=== PATIENT | female | born 1985 | race Caucasian/White ===

== ENCOUNTER 2017-09-02 21:27 | Emergency (ER) | payer MEDICAID ==
[2017-09-02 23:37] LABS: BASOPHIL % 1.6 % (0-2); PLATELET COUNT 355 x10^3mcL (130-400)
[2017-09-02 23:38] LABS: RED CELL DISTRIBUTION WIDTH 15.4 % (11.5-14.5)
[2017-09-02 23:46] LABS: CALCIUM 8.6 mg/dL (8.5-10.1); CARBON DIOXIDE 26.5 mmol/L (21-32); CHLORIDE SERUM 101 mmol/L (98-107); CREATININE SERUM 0.6 mg/dL (0.6-1.0); GFR1 > 60 mL/min; GLUCOSE SERUM 163 mg/dL (74-106); POTASSIUM SERUM 3.5 mmol/L (3.5-5.1); SODIUM SERUM 135 mmol/L (136-145)
[2017-09-03 02:52] VITALS: BP 111/77
== END 2017-09-03 02:52 | disposition home or self-care (01) ==
LOC: ED 21:27
PROVIDERS: Emergency Medicine
DX: R07.89 Other chest pain (principal); F41.9 Anxiety disorder, unspecified
CPT/HCPCS: 36415; 83880; 85378; J1170; J1885; Q0092

== ENCOUNTER 2017-09-11 16:10 | Inpatient (IN) | payer MEDICAID ==
[~2017-09-11] VITALS: Ht 170.2 cm; Wt 110.2 kg
[2017-09-11] MEDS ORDERED: ATIVAN1 MG PO (19:39)
[2017-09-11 19:49] LABS: BASOPHIL % 1.2 % (0-2); PLATELET COUNT 366 x10^3mcL (130-400); RED CELL DISTRIBUTION WIDTH 15.6 % (11.5-14.5)
[2017-09-11 20:05] LABS: CALCIUM 8.8 mg/dL (8.5-10.1); CARBON DIOXIDE 27.5 mmol/L (21-32); CHLORIDE SERUM 101 mmol/L (98-107); CREATININE SERUM 0.7 mg/dL (0.6-1.0); GFR1 > 60 mL/min; GLUCOSE SERUM 117 mg/dL (74-106); POTASSIUM SERUM 3.7 mmol/L (3.5-5.1); SODIUM SERUM 136 mmol/L (136-145)
[2017-09-11 20:08] LABS: CK-MB < 0.5 ng/mL (0-3.6); CREATINE KINASE 21 U/L (26-192)
[2017-09-11 20:14] LABS: T3 TOTAL 1.06 ng/mL
[2017-09-11 20:18] LABS: ALKALINE PHOSPHATASE 73 U/L (46-116); ALT/SGPT 19 U/L (14-59); AST/SGOT 14 U/L (15-37); C REACTIVE PROTEIN 2.9 mg/dL (<=0.9); TOTAL PROTEIN, SERUM 7.7 g/dL (6.4-8.2)
[2017-09-11 20:35] LABS: AMPHETAMINE QUAL UR NONE DETECTED (NEG <=1000)
[2017-09-11 20:48] LABS: ERYTHROCYTE SED RATE 45 mm/hr (0-20)
[2017-09-11 21:39] VITALS: BP 108/60
[2017-09-11 21:51] LABS: CHOLESTEROL/HDL RATIO 4.6; MAGNESIUM 1.9 mg/dL (1.8-2.4); PHOSPHOROUS 3.6 mg/dL (2.5-4.9)
[2017-09-11 22:46] LABS: FREE T4 1.21 ng/dL (0.76-1.46); FREE THYROXINE INDEX 2.9 ug/dL (1.4-4.5); T4(THYROXINE) 9.2 ug/dL (4.7-13.3)
[2017-09-11 23:52] VITALS: BP 108/60
[2017-09-12 00:27] LABS: microscopic required? NO
[2017-09-12 00:40] LABS: urine erythrocyte NEGATIVE (NEGATIVE)
[2017-09-12 05:40] VITALS: BP 98/51
[2017-09-12 06:43] LABS: BASOPHIL % 0.4 % (0-2); PLATELET COUNT 329 x10^3mcL (130-400)
[2017-09-12 06:58] LABS: RED CELL DISTRIBUTION WIDTH 15.6 % (11.5-14.5)
[2017-09-12 08:23] LABS: CALCIUM 8.4 mg/dL (8.5-10.1); CARBON DIOXIDE 23.8 mmol/L (21-32); CHLORIDE SERUM 104 mmol/L (98-107); CREATININE SERUM 0.7 mg/dL (0.6-1.0); GFR1 > 60 mL/min; GLUCOSE SERUM 85 mg/dL (74-106); POTASSIUM SERUM 3.5 mmol/L (3.5-5.1); SODIUM SERUM 139 mmol/L (136-145)
[2017-09-12 09:35] VITALS: BP 95/54
[2017-09-12 12:50] VITALS: BP 104/60
[2017-09-12 18:33] VITALS: BP 104/59
[2017-09-12 20:52] VITALS: BP 104/65
[2017-09-13 05:15] VITALS: BP 106/65
[2017-09-13 06:59] LABS: BASOPHIL % 0.5 % (0-2); PLATELET COUNT 303 x10^3mcL (130-400)
[2017-09-13 07:01] LABS: RED CELL DISTRIBUTION WIDTH 15.5 % (11.5-14.5)
[2017-09-13 07:33] LABS: CALCIUM 8.1 mg/dL (8.5-10.1); CARBON DIOXIDE 24.7 mmol/L (21-32); CHLORIDE SERUM 106 mmol/L (98-107); CREATININE SERUM 0.6 mg/dL (0.6-1.0); GFR1 > 60 mL/min; GLUCOSE SERUM 99 mg/dL (74-106); PHOSPHOROUS 3.9 mg/dL (2.5-4.9); SODIUM SERUM 139 mmol/L (136-145)
[2017-09-13 08:52] VITALS: BP 109/65
[2017-09-13 13:16] VITALS: Ht 170.2 cm; Wt 110.2 kg
[2017-09-13 17:32] VITALS: BP 114/55
[2017-09-13 20:50] VITALS: BP 123/73
[2017-09-14 05:22] VITALS: BP 108/67
[2017-09-14 07:33] LABS: BASOPHIL % 0.2 % (0-2); PLATELET COUNT 330 x10^3mcL (130-400)
[2017-09-14 07:35] LABS: CALCIUM 8.2 mg/dL (8.5-10.1); CARBON DIOXIDE 25.4 mmol/L (21-32); CHLORIDE SERUM 104 mmol/L (98-107); CREATININE SERUM 0.6 mg/dL (0.6-1.0); GFR1 > 60 mL/min; GLUCOSE SERUM 144 mg/dL (74-106); POTASSIUM SERUM 3.5 mmol/L (3.5-5.1); SODIUM SERUM 137 mmol/L (136-145)
[2017-09-14 07:49] LABS: RED CELL DISTRIBUTION WIDTH 15.5 % (11.5-14.5)
[2017-09-14 08:45] VITALS: BP 113/61
[2017-09-14 12:35] VITALS: BP 104/54
[2017-09-14 17:19] VITALS: BP 106/60
[2017-09-14 21:14] VITALS: BP 111/61
[2017-09-15 04:49] VITALS: BP 100/50
[2017-09-15 06:34] LABS: BASOPHIL % 0.3 % (0-2); PLATELET COUNT 322 x10^3mcL (130-400)
[2017-09-15 06:45] LABS: RED CELL DISTRIBUTION WIDTH 16.1 % (11.5-14.5)
[2017-09-15 06:46] LABS: CALCIUM 8.3 mg/dL (8.5-10.1); CARBON DIOXIDE 26.7 mmol/L (21-32); CHLORIDE SERUM 105 mmol/L (98-107); CREATININE SERUM 0.6 mg/dL (0.6-1.0); GFR1 > 60 mL/min; GLUCOSE SERUM 85 mg/dL (74-106); POTASSIUM SERUM 3.7 mmol/L (3.5-5.1); SODIUM SERUM 140 mmol/L (136-145)
[2017-09-15 10:09] VITALS: BP 108/67
[2017-09-15 12:59] VITALS: BP 103/65; BP 106/77
[2017-09-15 17:07] VITALS: BP 127/60
[2017-09-15 21:20] VITALS: BP 114/63
[2017-09-16 04:52] VITALS: BP 114/63
[2017-09-16 05:12] VITALS: BP 124/76
[2017-09-16 07:18] LABS: BASOPHIL % 0.1 % (0-2); PLATELET COUNT 336 x10^3mcL (130-400)
[2017-09-16 07:23] LABS: RED CELL DISTRIBUTION WIDTH 15.6 % (11.5-14.5)
[2017-09-16 07:41] LABS: CARBON DIOXIDE 26.7 mmol/L (21-32); CHLORIDE SERUM 104 mmol/L (98-107); CREATININE SERUM 0.6 mg/dL (0.6-1.0); GFR1 > 60 mL/min; GLUCOSE SERUM 92 mg/dL (74-106); POTASSIUM SERUM 3.6 mmol/L (3.5-5.1); SODIUM SERUM 139 mmol/L (136-145)
[2017-09-16 09:48] VITALS: BP 105/69
[2017-09-16 13:26] VITALS: BP 98/54
[2017-09-16 17:01] VITALS: BP 111/69
[2017-09-16 19:30] VITALS: BP 108/58
[2017-09-17 06:15] VITALS: BP 96/57
[2017-09-17 06:59] LABS: BASOPHIL % 0.1 % (0-2); PLATELET COUNT 322 x10^3mcL (130-400)
[2017-09-17 07:01] LABS: RED CELL DISTRIBUTION WIDTH 15.7 % (11.5-14.5)
[2017-09-17 09:08] VITALS: BP 138/51
[2017-09-17 16:36] VITALS: BP 96/51
[2017-09-17 21:41] VITALS: BP 111/61
[2017-09-18 06:11] VITALS: BP 105/49
[2017-09-18 06:17] LABS: BASOPHIL % 0.2 % (0-2); PLATELET COUNT 323 x10^3mcL (130-400)
[2017-09-18 06:28] LABS: CALCIUM 8.3 mg/dL (8.5-10.1); CARBON DIOXIDE 26.1 mmol/L (21-32); CHLORIDE SERUM 104 mmol/L (98-107); CREATININE SERUM 0.7 mg/dL (0.6-1.0); GFR1 > 60 mL/min; GLUCOSE SERUM 104 mg/dL (74-106); POTASSIUM SERUM 3.6 mmol/L (3.5-5.1); SODIUM SERUM 140 mmol/L (136-145)
[2017-09-18 06:45] LABS: RED CELL DISTRIBUTION WIDTH 15.2 % (11.5-14.5)
[2017-09-18 09:30] VITALS: BP 97/48
[2017-09-18 10:23] VITALS: BP 100/53
[2017-09-18] MEDS ORDERED: LEV500 PO (15:08)
== END 2017-09-18 17:10 | disposition home or self-care (01) | DRG 139 ==
LOC: ED 16:10 → DU 19:27 → MU 09-16 17:05
PROVIDERS: Family Medicine; Specialist; Student in an Organized Health Care Education/Training Program
PROC: 0B9G8ZX Drainage of Left Upper Lung Lobe, Via Natural or Artificial Opening Endoscopic, Diagnostic (ICD-10-PCS; principal; 2017-09-14)
PROC: 0B9C8ZX Drainage of Right Upper Lung Lobe, Via Natural or Artificial Opening Endoscopic, Diagnostic (ICD-10-PCS; 2017-09-14)
DX: J18.9 Pneumonia, unspecified organism (principal); E44.0 Moderate protein-calorie malnutrition; F41.9 Anxiety disorder, unspecified; E11.65 Type 2 diabetes mellitus with hyperglycemia; M94.0 Chondrocostal junction syndrome [Tietze]; I34.0 Nonrheumatic mitral (valve) insufficiency; D72.829 Elevated white blood cell count, unspecified; E78.2 Mixed hyperlipidemia; F17.210 Nicotine dependence, cigarettes, uncomplicated; Z98.51 Tubal ligation status; Z98.891 History of uterine scar from previous surgery; Z68.38 Body mass index [BMI] 38.0-38.9, adult; E66.9 Obesity, unspecified
CPT/HCPCS: 36600; 82962; 83880; 84439; 86480; 87116; 87206; 94150; J0330; J0696; J1885; J2060; J2405; J2543; J2930; J3010; J7030; J7040; J7120; J7620; Q0092

== ENCOUNTER 2017-10-14 10:05 | Emergency (ER) | payer MEDICAID ==
[~2017-10-14] VITALS: Ht 170.2 cm; Wt 110.7 kg
[~2017-10-14 10:05] MED LIST: ATIVAN1 MG PO; LEV500 PO
[2017-10-14 10:20] VITALS: Ht 170.2 cm; Wt 110.7 kg
[2017-10-14 12:22] VITALS: BP 105/69
== END 2017-10-14 12:22 | disposition home or self-care (01) ==
LOC: ED 10:05
DX: R07.89 Other chest pain (principal); R91.1 Solitary pulmonary nodule; E11.9 Type 2 diabetes mellitus without complications
CPT/HCPCS: 82962

== ENCOUNTER 2017-11-18 21:45 | Inpatient (IN) | payer MEDICAID ==
[~2017-11-18] VITALS: Ht 167.6 cm; Wt 112.3 kg
[2017-11-18 22:03] VITALS: Ht 167.6 cm; Wt 112.3 kg
[2017-11-18 23:06] LABS: PLATELET COUNT 330 x10^3mcL (130-400)
[2017-11-18 23:11] LABS: RED CELL DISTRIBUTION WIDTH 16.6 % (11.5-14.5)
[2017-11-18 23:16] LABS: CALCIUM 8.6 mg/dL (8.5-10.1); CARBON DIOXIDE 29.8 mmol/L (21-32); CHLORIDE SERUM 102 mmol/L (98-107); CREATININE SERUM 0.7 mg/dL (0.6-1.0); GFR1 > 60 mL/min; GLUCOSE SERUM 151 mg/dL (74-106); POTASSIUM SERUM 3.8 mmol/L (3.5-5.1); SODIUM SERUM 136 mmol/L (136-145)
[2017-11-18 23:20] LABS: ALBUMIN 3.2 g/dL (3.4-5.0); ALKALINE PHOSPHATASE 83 U/L (46-116); ALT/SGPT 43 U/L (14-59); AST/SGOT 26 U/L (15-37); BILIRUBIN TOTAL 0.2 mg/dL (0.20-1.00); LIPASE 79 IU/L (73-393); TOTAL PROTEIN, SERUM 7.7 g/dL (6.4-8.2)
[2017-11-18] MEDS ORDERED: ACE AEROSOL CL1 EACH MC (23:43)
[2017-11-19] VITALS (7 sets, daily range): BP systolic 83–101; BP diastolic 36–47
[2017-11-19 02:22] LABS: CHOLESTEROL/HDL RATIO 3.8; MAGNESIUM 1.9 mg/dL (1.8-2.4); PHOSPHOROUS 3.1 mg/dL (2.5-4.9)
[2017-11-19 02:25] LABS: T3 TOTAL 1.32 ng/mL
[2017-11-19 02:45] LABS: FREE T4 1.18 ng/dL (0.76-1.46); FREE THYROXINE INDEX 3.4 ug/dL (1.4-4.5); T4(THYROXINE) 10.9 ug/dL (4.7-13.3)
[2017-11-19 06:14] LABS: BASOPHIL % 0.3 % (0-2); PLATELET COUNT 285 x10^3mcL (130-400)
[2017-11-19 06:35] LABS: CALCIUM 7.8 mg/dL (8.5-10.1); CARBON DIOXIDE 24.9 mmol/L (21-32); CHLORIDE SERUM 104 mmol/L (98-107); CREATININE SERUM 0.6 mg/dL (0.6-1.0); GFR1 > 60 mL/min; GLUCOSE SERUM 92 mg/dL (74-106); MAGNESIUM 1.8 mg/dL (1.8-2.4); POTASSIUM SERUM 3.7 mmol/L (3.5-5.1); SODIUM SERUM 137 mmol/L (136-145)
[2017-11-19 07:10] LABS: RED CELL DISTRIBUTION WIDTH 15.9 % (11.5-14.5)
[2017-11-20 06:18] LABS: BASOPHIL % 0.3 % (0-2); PLATELET COUNT 305 x10^3mcL (130-400)
[2017-11-20 06:32] VITALS: BP 98/47
[2017-11-20 06:45] LABS: CALCIUM 8.7 mg/dL (8.5-10.1); CHLORIDE SERUM 103 mmol/L (98-107); CREATININE SERUM 0.6 mg/dL (0.6-1.0); GFR1 > 60 mL/min; GLUCOSE SERUM 106 mg/dL (74-106); MAGNESIUM 2.1 mg/dL (1.8-2.4); PHOSPHOROUS 4.3 mg/dL (2.5-4.9); POTASSIUM SERUM 4.1 mmol/L (3.5-5.1); SODIUM SERUM 139 mmol/L (136-145)
[2017-11-20 07:33] LABS: RED CELL DISTRIBUTION WIDTH 16.5 % (11.5-14.5)
[2017-11-20 09:07] VITALS: BP 95/37
[2017-11-20 09:25] LABS: microscopic required? NO
[2017-11-20 09:58] LABS: UA SPECIFIC GRAVITY 1.015 (1.005-1.035); urine erythrocyte NEGATIVE (NEGATIVE)
[2017-11-20 10:29] LABS: AMPHETAMINE QUAL UR NONE DETECTED (NEG <=1000)
[2017-11-20 12:49] VITALS: BP 115/72
[2017-11-20 17:05] VITALS: BP 105/60
[2017-11-20 20:37] VITALS: BP 111/61
[2017-11-20 23:49] VITALS: BP 102/61
[2017-11-21 05:35] VITALS: BP 105/62
[2017-11-21 06:26] LABS: BASOPHIL % 0.2 % (0-2); PLATELET COUNT 321 x10^3mcL (130-400)
[2017-11-21 06:57] LABS: CALCIUM 8.6 mg/dL (8.5-10.1); CARBON DIOXIDE 25.5 mmol/L (21-32); CHLORIDE SERUM 104 mmol/L (98-107); CREATININE SERUM 0.6 mg/dL (0.6-1.0); GFR1 > 60 mL/min; GLUCOSE SERUM 124 mg/dL (74-106); MAGNESIUM 2.3 mg/dL (1.8-2.4); PHOSPHOROUS 4.2 mg/dL (2.5-4.9); POTASSIUM SERUM 3.7 mmol/L (3.5-5.1); SODIUM SERUM 138 mmol/L (136-145)
[2017-11-21 09:25] VITALS: BP 97/50
[2017-11-21] MEDS ORDERED: COL100 PO (10:13)
[2017-11-21] MEDS ORDERED: LAC PO (10:13)
[2017-11-21] MEDS ORDERED: METFORMIN HCL500 MG PO ×2 (10:15→14:22)
[2017-11-21 13:22] VITALS: BP 106/56
[2017-11-21 13:41] VITALS: BP 106/56
[2017-11-21] MEDS ORDERED: BD LACTINEX1.4 MG PO (14:22)
[2017-11-21] MEDS ORDERED: KEFLEX500 M1 PO (14:22)
== END 2017-11-21 14:58 | disposition home or self-care (01) | DRG 710 ==
LOC: ED 21:45 → DU 23:28 → MU 11-21 10:35
PROVIDERS: Emergency Medicine; Family Medicine
PROC: 0DTJ4ZZ Resection of Appendix, Percutaneous Endoscopic Approach (ICD-10-PCS; principal; 2017-11-21)
DX: A41.9 Sepsis, unspecified organism (principal); E11.65 Type 2 diabetes mellitus with hyperglycemia; I10 Essential (primary) hypertension; E44.1 Mild protein-calorie malnutrition; K35.80 Unspecified acute appendicitis; K52.9 Noninfective gastroenteritis and colitis, unspecified; E66.9 Obesity, unspecified; Z68.35 Body mass index [BMI] 35.0-35.9, adult; G43.909 Migraine, unspecified, not intractable, without status migrainosus; F41.9 Anxiety disorder, unspecified; Z98.51 Tubal ligation status; Z83.3 Family history of diabetes mellitus; Z82.49 Family history of ischemic heart disease and other diseases of the circulatory system; F17.210 Nicotine dependence, cigarettes, uncomplicated; J45.909 Unspecified asthma, uncomplicated; E78.5 Hyperlipidemia, unspecified; N83.8 Other noninflammatory disorders of ovary, fallopian tube and broad ligament
CPT/HCPCS: 82962; 83880; 84439; 97110-GP; 97116-GP; 97535-GP; J0330; J0696; J1170; J1644; J1885; J2250; J2270; J2405; J2543; J2704; J2710; J3010; J3490; J7030; J7620; Q0092

== ENCOUNTER 2018-02-27 17:03 | Emergency (ER) | payer MEDICAID ==
[~2018-02-27] VITALS: Ht 167.6 cm; Wt 110.2 kg
[~2018-02-27 17:03] MED LIST changes: +ACE AEROSOL CL1 EACH MC; +BD LACTINEX1.4 MG PO; +COL100 PO; +KEFLEX500 M1 PO; +LAC PO; +METFORMIN HCL500 MG PO
[2018-02-27 17:55] VITALS: Ht 167.6 cm; Wt 110.2 kg
[2018-02-27 21:30] VITALS: BP 107/74
[2018-02-27 21:50] LABS: microscopic required? NO
[2018-02-27 22:19] LABS: urine erythrocyte NEGATIVE (NEGATIVE)
== END 2018-02-27 21:30 | disposition home or self-care (01) ==
LOC: ED 17:03
PROVIDERS: Emergency Medicine
DX: N39.0 Urinary tract infection, site not specified (principal); I10 Essential (primary) hypertension; E11.9 Type 2 diabetes mellitus without complications; Z90.89 Acquired absence of other organs

== ENCOUNTER 2018-03-25 20:58 | Emergency (ER) | payer MEDICAID ==
[~2018-03-25] VITALS: Ht 167.6 cm; Wt 110.9 kg
[2018-03-25 21:24] VITALS: Ht 167.6 cm; Wt 110.9 kg
[2018-03-25 22:20] LABS: microscopic required? YES; urine erythrocyte 3+ (NEGATIVE)
[2018-03-25 23:03] LABS: CALCIUM 8.9 mg/dL (8.5-10.1); CARBON DIOXIDE 29.6 mmol/L (21-32); CHLORIDE SERUM 101 mmol/L (98-107); CREATININE SERUM 0.7 mg/dL (0.6-1.0); GFR1 > 60 mL/min; GLUCOSE SERUM 104 mg/dL (74-106); POTASSIUM SERUM 3.6 mmol/L (3.5-5.1); SODIUM SERUM 136 mmol/L (136-145)
[2018-03-25 23:07] LABS: BASOPHIL % 0.6 % (0-2); PLATELET COUNT 353 x10^3mcL (130-400)
[2018-03-25 23:10] LABS: ALKALINE PHOSPHATASE 88 U/L (46-116); ALT/SGPT 46 U/L (14-59); AST/SGOT 25 U/L (15-37); BILIRUBIN TOTAL 0.29 mg/dL (0.20-1.00); LIPASE 97 IU/L (73-393); TOTAL PROTEIN, SERUM 8.2 g/dL (6.4-8.2)
[2018-03-25 23:15] LABS: RED CELL DISTRIBUTION WIDTH 16.6 % (11.5-14.5)
[2018-03-25 23:19] LABS: ALBUMIN 3.3 g/dL (3.4-5.0); AMYLASE 17 U/L (25-115)
[2018-03-25 23:26] VITALS: BP 107/65
== END 2018-03-25 23:26 | disposition home or self-care (01) ==
LOC: ED 20:58
PROVIDERS: Emergency Medicine
DX: N12 Tubulo-interstitial nephritis, not specified as acute or chronic (principal); E11.9 Type 2 diabetes mellitus without complications; I10 Essential (primary) hypertension; J45.909 Unspecified asthma, uncomplicated; Z90.49 Acquired absence of other specified parts of digestive tract
CPT/HCPCS: J0696; J1885; J2405; J3010

== ENCOUNTER 2018-09-01 22:46 | Emergency (ER) | payer MEDICAID ==
[~2018-09-01] VITALS: Ht 167.6 cm; Wt 110.2 kg
[2018-09-01 23:04] VITALS: BP 132/88; Ht 167.6 cm; Wt 110.2 kg
== END 2018-09-02 00:17 | disposition left against medical advice (07) ==
LOC: ED 22:46
DX: Z53.21 Procedure and treatment not carried out due to patient leaving prior to being seen by health care provider (principal)

== ENCOUNTER 2018-10-07 19:14 | Emergency (ER) | payer MEDICAID ==
[~2018-10-07] VITALS: Ht 167.6 cm; Wt 112.0 kg
[2018-10-07 19:24] VITALS: Ht 167.6 cm; Wt 112.0 kg
[2018-10-07 23:37] LABS: BASOPHIL % 0.4 % (0-2); PLATELET COUNT 327 x10^3mcL (130-400)
[2018-10-07 23:46] LABS: RED CELL DISTRIBUTION WIDTH 15.9 % (11.5-14.5)
[2018-10-07 23:50] LABS: CALCIUM 8.2 mg/dL (8.5-10.1); CARBON DIOXIDE 29.6 mmol/L (21-32); CHLORIDE SERUM 102 mmol/L (98-107); CREATININE SERUM 0.7 mg/dL (0.6-1.0); GFR1 > 60 mL/min; GLUCOSE SERUM 217 mg/dL (74-106); POTASSIUM SERUM 3.8 mmol/L (3.5-5.1); SODIUM SERUM 138 mmol/L (136-145)
[2018-10-07 23:55] LABS: ALKALINE PHOSPHATASE 86 U/L (46-116); ALT/SGPT 31 U/L (14-59); AST/SGOT 17 U/L (15-37); BILIRUBIN TOTAL 0.1 mg/dL (0.20-1.00); LIPASE 95 IU/L (73-393); TOTAL PROTEIN, SERUM 7.6 g/dL (6.4-8.2)
[2018-10-07 23:58] LABS: ALBUMIN 3.1 g/dL (3.4-5.0)
[2018-10-08 00:22] VITALS: BP 114/68
== END 2018-10-08 00:22 | disposition home or self-care (01) ==
LOC: ED 19:14
PROVIDERS: Emergency Medicine
DX: R07.89 Other chest pain (principal); K80.20 Calculus of gallbladder without cholecystitis without obstruction; I10 Essential (primary) hypertension; E11.9 Type 2 diabetes mellitus without complications; Z90.89 Acquired absence of other organs
CPT/HCPCS: 36415; 82962; Q0092

== ENCOUNTER 2018-12-30 14:50 | Emergency (ER) | payer MEDICAID ==
[~2018-12-30] VITALS: Ht 167.6 cm; Wt 106.1 kg
[2018-12-30 14:53] VITALS: Ht 167.6 cm; Wt 106.1 kg
[2018-12-30 15:38] LABS: BASOPHIL % 0.5 % (0-2); PLATELET COUNT 278 x10^3mcL (130-400)
[2018-12-30 15:42] LABS: RED CELL DISTRIBUTION WIDTH 15.1 % (11.5-14.5)
[2018-12-30 15:52] LABS: CARBON DIOXIDE 22.4 mmol/L (21-32); CHLORIDE SERUM 102 mmol/L (98-107); CREATININE SERUM 0.6 mg/dL (0.6-1.0); GFR1 > 60 mL/min; GLUCOSE SERUM 122 mg/dL (74-106); POTASSIUM SERUM 3.6 mmol/L (3.5-5.1); SODIUM SERUM 136 mmol/L (136-145)
[2018-12-30 15:57] LABS: ALBUMIN 3.2 g/dL (3.4-5.0); ALKALINE PHOSPHATASE 65 U/L (46-116); ALT/SGPT 36 U/L (14-59); AST/SGOT 21 U/L (15-37); TOTAL PROTEIN, SERUM 7.5 g/dL (6.4-8.2)
[2018-12-30 18:44] VITALS: BP 110/48
== END 2018-12-30 18:44 | disposition home or self-care (01) ==
LOC: ED 14:50
PROVIDERS: Emergency Medicine
DX: R09.1 Pleurisy (principal); J18.9 Pneumonia, unspecified organism; I10 Essential (primary) hypertension; E11.9 Type 2 diabetes mellitus without complications; Z90.49 Acquired absence of other specified parts of digestive tract; J98.4 Other disorders of lung
CPT/HCPCS: 85378; J2270; J7030; Q0092; Q9967

== ENCOUNTER 2018-12-30 23:24 | Emergency (ER) | payer MEDICAID ==
[~2018-12-30] VITALS: Ht 167.6 cm; Wt 56.4 kg
[2018-12-30 23:27] VITALS: BP 131/59; Ht 167.6 cm; Wt 56.4 kg
== END 2018-12-31 00:02 | disposition left against medical advice (07) ==
LOC: ED 23:24
DX: Z53.21 Procedure and treatment not carried out due to patient leaving prior to being seen by health care provider (principal)

== ENCOUNTER 2019-02-09 17:57 | Emergency (ER) | payer MEDICAID ==
[~2019-02-09] VITALS: Ht 165.1 cm; Wt 108.9 kg
[2019-02-09 18:56] VITALS: Ht 165.1 cm; Wt 108.9 kg
[2019-02-09 20:24] LABS: UA SPECIFIC GRAVITY >=1.030 (1.005-1.035); microscopic required? YES; urine erythrocyte 3+ (NEGATIVE)
[2019-02-09 20:29] LABS: BASOPHIL % 0.4 % (0-2); PLATELET COUNT 335 x10^3mcL (130-400); RED CELL DISTRIBUTION WIDTH 15.2 % (11.5-14.5)
[2019-02-09 20:57] LABS: CALCIUM 9.3 mg/dL (8.5-10.1); CARBON DIOXIDE 27.1 mmol/L (21-32); CHLORIDE SERUM 104 mmol/L (98-107); CREATININE SERUM 0.7 mg/dL (0.6-1.0); GFR1 > 60 mL/min; GLUCOSE SERUM 119 mg/dL (74-106); POTASSIUM SERUM 3.5 mmol/L (3.5-5.1); SODIUM SERUM 140 mmol/L (136-145)
[2019-02-09 21:07] LABS: ALKALINE PHOSPHATASE 67 U/L (46-116); ALT/SGPT 27 U/L (14-59); AST/SGOT 13 U/L (15-37); BILIRUBIN TOTAL 0.16 mg/dL (0.20-1.00); CHOLESTEROL 125 mg/dL (<200); HDL CHOLESTEROL 26 mg/dL (40-60); LIPASE 89 IU/L (73-393); TOTAL PROTEIN, SERUM 7.5 g/dL (6.4-8.2)
[2019-02-10 00:11] VITALS: BP 110/63
== END 2019-02-10 00:11 | disposition home or self-care (01) ==
LOC: ED 17:57
PROVIDERS: Emergency Medicine
DX: R10.12 Left upper quadrant pain (principal); R31.9 Hematuria, unspecified; E46 Unspecified protein-calorie malnutrition; E11.9 Type 2 diabetes mellitus without complications; I10 Essential (primary) hypertension; F17.210 Nicotine dependence, cigarettes, uncomplicated; Z71.6 Tobacco abuse counseling; Z90.89 Acquired absence of other organs
CPT/HCPCS: 99406; J0500; J1885; J7030; Q0092